=== PATIENT | male | born 1965 | race Caucasian/White ===

== ENCOUNTER → 2016-11-11 | Outpatient (CLI) | payer OTHER ==
[~2016-11-11] MED LIST: COLC0.6T37 PO; ENOX60SY4 SQ; ENOX80SY4 SQ; FENT1PAT74 TD; FENT1PAT77 TD; FERR324T18 PO; HYDR473S47 PO; MAGN400O4 PO; NAPR-763 PO; OMEP-110 PO; OMNIPAQUE 350 MG/ML, 100ML BOTTLE ONE; ONDA4TAB10 PO; ONDA8TAB9 PO; OXYC1TAB9 PO; OXYC5TAB3 PO; SENN-1 PO; SUCR1ORA11 PO
== END | disposition home or self-care (01) ==
LOC: CFH 11:20
PROVIDERS: ATTEND Specialist
DX: C15.5 Malignant neoplasm of lower third of esophagus (principal); N28.1 Cyst of kidney, acquired; K76.9 Liver disease, unspecified; Z90.49 Acquired absence of other specified parts of digestive tract
CPT/HCPCS: 71260; 74177; Q9967

== ENCOUNTER → 2017-01-29 | Outpatient (CLI) | payer OTHER | END | disposition home or self-care (01) | LOC: CFH 09:48 | PROVIDERS: ATTEND Specialist | DX: C15.5 Malignant neoplasm of lower third of esophagus (principal); R42 Dizziness and giddiness; K76.89 Other specified diseases of liver; N28.1 Cyst of kidney, acquired; K40.90 Unilateral inguinal hernia, without obstruction or gangrene, not specified as recurrent; Z90.49 Acquired absence of other specified parts of digestive tract | CPT/HCPCS: 71260; 74177; Q9967 ==

== ENCOUNTER → 2017-06-30 | Outpatient (CLI) | payer OTHER ==
[~2017-06-30] MED LIST changes: -MAGN400O4 PO; +MAGN400O7 PO
== END | disposition home or self-care (01) ==
LOC: CFH 09:08
PROVIDERS: ATTEND Radiology Radiation Oncology
DX: C15.5 Malignant neoplasm of lower third of esophagus (principal)
CPT/HCPCS: 71260; 74177; Q9967

== ENCOUNTER → 2017-07-03 | Outpatient (CLI) | payer OTHER ==
[~2017-07-03] MED LIST changes: -OMNIPAQUE 350 MG/ML, 100ML BOTTLE ONE
== END | disposition home or self-care (01) ==
LOC: ROC 08:12
PROVIDERS: ATTEND Radiology Radiation Oncology
DX: Z08 Encounter for follow-up examination after completed treatment for malignant neoplasm (principal); C16.0 Malignant neoplasm of cardia; C78.6 Secondary malignant neoplasm of retroperitoneum and peritoneum; Z92.3 Personal history of irradiation
CPT/HCPCS: 99212; G0463

== ENCOUNTER 2017-07-19 22:03 | Inpatient (IN) | payer OTHER ==
[~2017-07-19] VITALS: Ht 172.7 cm; Wt 76.8 kg
[2017-07-19] MEDS ORDERED: MORPHINE SULFATE 4 MG/ML, 1ML ONE ×2 (23:16→23:53)
[2017-07-19] MEDS ORDERED: ONDANSETRON 2MG/ML, 2ML ONE (23:16)
[2017-07-19] MEDS: MORPHINE SULFATE 4 MG/ML, 1ML IVPush PRN ×2 (23:27→23:55)
[2017-07-19] MEDS ORDERED: ONDANSETRON 2MG/ML, 2ML IVPush ONE (23:30)
[2017-07-19] MEDS ORDERED: SODIUM CHLORIDE 0.9% 1,000ML IVBOLUS ONE (23:30)
[2017-07-19 23:37] LABS: HEMATOCRIT 33.4 % (39.2-51.8); HEMOGLOBIN 10.9 g/dL (13.7-18.0)
[2017-07-19 23:38] LABS: DIFF TOTAL CELLS COUNTED 100 CELL DIFF
[2017-07-19 23:46] LABS: BLOOD UREA NITROGEN 20 mg/dL (7-18)
[2017-07-19 23:51] LABS: ASPARTATE AMINO TRANSFERASE 21 U/L (15-37)
[2017-07-19 23:53] LABS: IS PT STATUS REG ER OR PRE ER? YES
[2017-07-20] MEDS ORDERED: ONDANSETRON 2MG/ML, 2ML ONE ×2 (00:02→05:40)
[2017-07-20 00:11] LABS: VERIFY COUNTS? YES
[2017-07-20 00:13] LABS: ANISOCYTOSIS 1+; MICROCYTOSIS 1+; OVALOCYTES 1+; POLYCHROMASIA 1+
[2017-07-20 00:14] LABS: TARGET CELLS 1+
[2017-07-20] MEDS ORDERED: ONDANSETRON 2MG/ML, 2ML IVPush ONE (00:30)
[2017-07-20] MEDS ORDERED: OMNIPAQUE 350 MG/ML, 100ML BOTTLE ONE (00:31)
[2017-07-20] MEDS ORDERED: SODIUM CHLORIDE 0.9% 1,000 ML IV ONE (01:48)
[2017-07-20] MEDS ORDERED: MORPHINE SULFATE 4 MG/ML, 1ML IVPush PRN (02:00)
[2017-07-20] MEDS ORDERED: METOCLOPRAMIDE 5 MG/ML, 2ML ONE (02:33)
[2017-07-20] MEDS ORDERED: METOCLOPRAMIDE 5 MG/ML, 2ML IVPush ONE (03:00)
[2017-07-20] MEDS ORDERED: SODIUM CHLORIDE 0.9% 1,000 ML IV SCH (03:44)
[2017-07-20] MEDS ORDERED: ACETAMINOPHEN 325 MG TABLET PO PRN (04:00)
[2017-07-20] MEDS ORDERED: morphine SULFATE 10 MG/ML, 1ML IVPush PRN (04:00)
[2017-07-20] MEDS ORDERED: ONDANSETRON ODT 4 MG PO PRN (04:00)
[2017-07-20] MEDS ORDERED: PROMETHAZINE 25 MG/ML, 1ML IM PRN (04:00)
[2017-07-20] MEDS ORDERED: METRONIDAZOLE PMX 500MG/100ML 100 ML ONE (04:26)
[2017-07-20] MEDS ORDERED: LEVOFLOXACIN/PMX 750MG/150ML 150 ML ONE (04:26)
[2017-07-20] MEDS: METRONIDAZOLE PMX 500MG/100ML 100 ML IV SCH ×3 (04:33→20:21)
[2017-07-20 05:24] LABS: HEMATOCRIT 29.5 % (39.2-51.8); HEMOGLOBIN 9.5 g/dL (13.7-18.0); WHITE BLOOD COUNT 9.1 x10^3/uL (3.4-10)
[2017-07-20 05:25] LABS: BLOOD UREA NITROGEN 20 mg/dL (7-18)
[2017-07-20 05:28] LABS: ASPARTATE AMINO TRANSFERASE 14 U/L (15-37)
[2017-07-20] MEDS: LEVOFLOXACIN/PMX 750MG/150ML 150 ML IV SCH (05:38)
[2017-07-20] MEDS ORDERED: MORPHINE SULFATE 4 MG/ML, 1ML ONE (05:40)
[2017-07-20] MEDS: ONDANSETRON 2MG/ML, 2ML IVPush PRN ×3 (05:45→20:29)
[2017-07-20 06:11] LABS: DIFF TOTAL CELLS COUNTED 100 CELL DIFF
[2017-07-20 06:13] LABS: VERIFY COUNTS? YES
[2017-07-20 06:14] LABS: ANISOCYTOSIS 1+; MICROCYTOSIS 1+; OVALOCYTES 1+; POLYCHROMASIA 1+; TARGET CELLS 1+
[2017-07-20] MEDS ORDERED: PANTOPRAZOLE 40 MG IV ONE (07:27)
[2017-07-20] MEDS: PANTOPRAZOLE 40 MG IV IVPush SCH (07:37)
[2017-07-20 08:25] VITALS: BP 125/82
[2017-07-20 14:31] VITALS: BP 110/61
[2017-07-20 16:34] LABS: BLOOD UREA NITROGEN 20 mg/dL (7-18)
[2017-07-20] MEDS: D5%-0.45NACL+KCL 40MEQ 1,000 ML IV SCH (18:31)
[2017-07-20 19:00] VITALS: BP 123/76
[2017-07-21] MEDS: D5%-0.45NACL+KCL 40MEQ 1,000 ML IV SCH ×3 (01:46→17:02)
[2017-07-21] MEDS: ONDANSETRON 2MG/ML, 2ML IVPush PRN ×2 (01:50→06:17)
[2017-07-21 02:59] VITALS: BP 128/81
[2017-07-21] MEDS: LEVOFLOXACIN/PMX 750MG/150ML 150 ML IV SCH (03:32)
[2017-07-21 04:41] LABS: HEMATOCRIT 25.4 % (39.2-51.8); HEMOGLOBIN 8.2 g/dL (13.7-18.0); WHITE BLOOD COUNT 8.2 x10^3/uL (3.4-10)
[2017-07-21] MEDS: METRONIDAZOLE PMX 500MG/100ML 100 ML IV SCH ×2 (04:42→11:42)
[2017-07-21] MEDS: PANTOPRAZOLE 40 MG IV IVPush SCH (06:16)
[2017-07-21 08:00] VITALS: BP 106/61
[2017-07-21 11:40] VITALS: BP 107/66
[2017-07-21 14:52] VITALS: BP 113/68
[2017-07-21 19:05] VITALS: BP 110/62
[2017-07-22 01:49] VITALS: BP 116/68
[2017-07-22] MEDS: D5%-0.45NACL+KCL 40MEQ 1,000 ML IV SCH ×4 (01:49→22:31)
[2017-07-22 04:25] LABS: HEMATOCRIT 23.2 % (39.2-51.8); HEMOGLOBIN 7.4 g/dL (13.7-18.0); WHITE BLOOD COUNT 5.5 x10^3/uL (3.4-10)
[2017-07-22 04:26] LABS: BLOOD UREA NITROGEN 13 mg/dL (7-18)
[2017-07-22 06:45] VITALS: BP 115/73
[2017-07-22] MEDS: PANTOPRAZOLE 40 MG IV IVPush SCH (07:57)
[2017-07-22 13:10] VITALS: BP 104/67
[2017-07-22 19:18] VITALS: BP 96/62
[2017-07-23 01:18] VITALS: BP 111/68
[2017-07-23 05:04] LABS: BLOOD UREA NITROGEN 8 mg/dL (7-18)
[2017-07-23 05:05] LABS: HEMATOCRIT 24.6 % (39.2-51.8); HEMOGLOBIN 7.8 g/dL (13.7-18.0); WHITE BLOOD COUNT 3.5 x10^3/uL (3.4-10)
[2017-07-23] MEDS: D5%-0.45NACL+KCL 40MEQ 1,000 ML IV SCH ×2 (05:11→10:20)
[2017-07-23 07:02] VITALS: BP 112/75
[2017-07-23] MEDS: PANTOPRAZOLE 40 MG IV IVPush SCH (08:43)
[2017-07-23 13:10] VITALS: BP 110/78
== END 2017-07-23 16:20 | disposition home or self-care (01) | DRG 389 ==
LOC: ED 07-20 00:06 → EDIP 07-20 01:49 → 4NOR 07-20 08:26 → 3NW 07-20 17:00 → DCLOUNGE 07-23 16:07
PROVIDERS: ADMIT Surgery; ATTEND Surgery
PROC: 0D9670Z Drainage of Stomach with Drainage Device, Via Natural or Artificial Opening (ICD-10-PCS; principal; 2017-07-20)
DX: K56.52 Intestinal adhesions [bands] with complete obstruction (principal); C16.9 Malignant neoplasm of stomach, unspecified; D64.9 Anemia, unspecified; D72.825 Bandemia; K21.9 Gastro-esophageal reflux disease without esophagitis; Z85.01 Personal history of malignant neoplasm of esophagus; Z85.028 Personal history of other malignant neoplasm of stomach; Z87.891 Personal history of nicotine dependence; Z92.21 Personal history of antineoplastic chemotherapy; Z92.3 Personal history of irradiation; Z90.49 Acquired absence of other specified parts of digestive tract
CPT/HCPCS: 36415; 74000; 74020; 74177; 80048; 80053; 81003; 83605; 83690; 83735; 84100; 84484; 85025; 85651; 86141; 96361; 96374; 96375; 96376; J1956; J2405; Q9967; C9113; J2270; J2765; J3480; J7030

== ENCOUNTER → 2017-07-30 | Outpatient (CLI) | payer OTHER | END | disposition home or self-care (01) | LOC: PETCFH 08:44 | PROVIDERS: ATTEND Specialist | DX: C15.5 Malignant neoplasm of lower third of esophagus (principal) | CPT/HCPCS: 78815; A9552 ==

== ENCOUNTER → 2017-08-20 | Outpatient (CLI) | payer OTHER | END | disposition home or self-care (01) | LOC: CVU 10:45 | PROVIDERS: ATTEND Surgery | DX: Z45.2 Encounter for adjustment and management of vascular access device (principal); C15.9 Malignant neoplasm of esophagus, unspecified; Z86.718 Personal history of other venous thrombosis and embolism; Z92.3 Personal history of irradiation; Z92.21 Personal history of antineoplastic chemotherapy | CPT/HCPCS: 93970 ==

== ENCOUNTER 2017-08-21 12:00 | Day surgery (SDC) | payer OTHER ==
[~2017-08-21] VITALS: Ht 172.7 cm; Wt 74.0 kg
[~2017-08-21 12:00] MED LIST changes: +BUPIVACAINE/PF 0.5% ONE; +EPINEPHRINE 1 MG/ML, 1ML ONE; +HEPARIN 1,000 UNITS/ML, 10ML ONE
[2017-08-21] MEDS ORDERED: LACTATED RINGERS 1,000 ML IV SCH (12:35)
[2017-08-21 12:37] VITALS: BP 122/74
[2017-08-21] MEDS ORDERED: CEFAZOLIN 1,000 MG ONE (12:53)
[2017-08-21] MEDS ORDERED: ONDANSETRON 2MG/ML, 2ML ONE (12:53)
[2017-08-21] MEDS ORDERED: MIDAZOLAM 1 MG/ML, 2ML ONE (12:53)
[2017-08-21] MEDS ORDERED: DEXAMETHASONE 4 MG/ML, 1ML ONE (12:53)
[2017-08-21] MEDS ORDERED: FENTANYL PF 250 MCG/5ML ONE (12:53)
[2017-08-21] MEDS ORDERED: PROPOFOL 10 MG/ML, 20ML ONE (12:53)
[2017-08-21 12:58] VITALS: BP 122/74
[2017-08-21] MEDS ORDERED: MIDAZOLAM 1 MG/ML, 2ML IV PRN (13:00)
[2017-08-21] MEDS ORDERED: OXYcodone 5 MG/5 ML ORAL.SOL UDC PO PRN (13:00)
[2017-08-21] MEDS ORDERED: ACETAMINOPHEN 325 MG TABLET PO PRN (13:00)
[2017-08-21] MEDS ORDERED: LABETALOL 5MG/ML, 20ML IV PRN (13:00)
[2017-08-21] MEDS ORDERED: DIAZEPAM 5 MG/ML, 2ML IVPush PRN (13:00)
[2017-08-21] MEDS ORDERED: ALBUTEROL/IPRATROPIUM 2.5MG/0.5MG, 3 ML NPPB PRN (13:00)
[2017-08-21] MEDS ORDERED: PLEASE ENTER HEIGHT AND WEIGHT MC SCH (13:00)
[2017-08-21] MEDS ORDERED: FENTANYL PF 100 MCG/2ML IV PRN (13:00)
[2017-08-21] MEDS ORDERED: PROMETHAZINE 25 MG/ML, 1ML IV PRN (13:00)
[2017-08-21] MEDS ORDERED: METOCLOPRAMIDE 5 MG/ML, 2ML IV PRN (13:00)
[2017-08-21] MEDS ORDERED: ONDANSETRON 2MG/ML, 2ML IVPush PRN (13:00)
[2017-08-21] MEDS ORDERED: HYDROmorphone 1 MG/ML, 1ML IV PRN (13:00)
[2017-08-21] MEDS ORDERED: LORazepam 2 MG/ML, 1ML IVPush PRN (13:00)
[2017-08-21] MEDS ORDERED: MEPERIDINE/PF 25MG/0.5ML IVPush PRN (13:00)
[2017-08-21] MEDS ORDERED: hydrALAzine 20 MG/ML, 1ML IV PRN (13:00)
[2017-08-21] MEDS ORDERED: KETOROLAC 30 MG/1 ML ONE (13:56)
== END 2017-08-21 15:55 ==
LOC: OUT 12:00
PROVIDERS: ATTEND Surgery
DX: Z45.2 Encounter for adjustment and management of vascular access device (principal); C15.9 Malignant neoplasm of esophagus, unspecified; K21.9 Gastro-esophageal reflux disease without esophagitis; Z72.89 Other problems related to lifestyle
CPT/HCPCS: 36561; 71045; 77001; C1788; J0171; J0690; J1100; J1644; J1885; J2250; J2405; J2704; J3010; J3490

== ENCOUNTER 2017-09-02 09:54 | Inpatient (IN) | payer OTHER ==
[~2017-09-02] VITALS: Ht 172.7 cm; Wt 76.0 kg
[~2017-09-02 09:54] MED LIST changes: -BUPIVACAINE/PF 0.5% ONE; -EPINEPHRINE 1 MG/ML, 1ML ONE; -HEPARIN 1,000 UNITS/ML, 10ML ONE
[2017-09-02] MEDS ORDERED: ONDANSETRON 2MG/ML, 2ML ONE (10:47)
[2017-09-02] MEDS ORDERED: MORPHINE SULFATE 4 MG/ML, 1ML ONE (10:47)
[2017-09-02] MEDS ORDERED: MORPHINE SULFATE 4 MG/ML, 1ML IVPush PRN (11:00)
[2017-09-02] MEDS ORDERED: ONDANSETRON 2MG/ML, 2ML IVPush ONE (11:00)
[2017-09-02 11:37] LABS: MEAN CORPUSCULAR HEMOGLOBIN 24.5 pg (27.5-34.5); MEAN CORPUSCULAR VOLUME 76.7 fL (81-97); MEAN PLATELET VOLUME 6.9 fL (7.4-10.4); PLATELET COUNT 428 x10^3/uL (130-400); RED BLOOD COUNT 4.19 x10^6/uL (4.38-5.82); RED CELL DISTRIBUTION WIDTH 20.2 % (9.4-14.8)
[2017-09-02 11:49] LABS: ANION GAP 9 mmol/L (5-15); CALCIUM 9.5 mg/dL (8.5-10.1); CHLORIDE 106 mmol/L (98-107)
[2017-09-02 11:53] LABS: ALANINE AMINOTRANSFERASE 18 U/L (12-78); ALKALINE PHOSPHATASE 87 U/L (45-117); BILIRUBIN,TOTAL 0.6 mg/dL (0.2-1.0); CREATININE 1.24 mg/dL (0.7-1.3); TOTAL PROTEIN 7.8 g/dL (6.4-8.2)
[2017-09-02] MEDS ORDERED: SODIUM CHLORIDE FLUSH 10ML SYR IVF ONE (12:00)
[2017-09-02] MEDS ORDERED: SODIUM CHLORIDE 0.9% 1,000ML IVBOLUS ONE ×2 (12:00→15:00)
[2017-09-02 12:34] LABS: BASOPHILS % (AUTO) 0 % (0-1); EOSINOPHILS # (AUTO) 0.01 x10^3/uL (0-0.4); EOSINOPHILS % (AUTO) 0 % (1-7); LYMPHOCYTES # (AUTO) 0.25 x10^3/uL (1-3.4); LYMPHOCYTES % (AUTO) 1 % (22-44); MD SCAN; MONOCYTES # (AUTO) 0.59 x10^3/uL (0.2-0.8); MONOCYTES % (AUTO) 3 % (2-9); NEUTROPHILS # (AUTO) 16.41 x10^3/uL (1.8-6.8); NEUTROPHILS % (AUTO) 95 % (42-75)
[2017-09-02] MEDS ORDERED: CEFTRIAXONE PMX 1GM/50ML 50 ML IV ONE (13:00)
[2017-09-02] MEDS ORDERED: CEFTRIAXONE PMX 1GM/50ML 50 ML ONE (13:27)
[2017-09-02] MEDS ORDERED: POLYETHYLENE GLYCOL 17 GM PACKET PO PRN (14:30)
[2017-09-02] MEDS ORDERED: ACETAMINOPHEN 325 MG TABLET PO PRN (14:30)
[2017-09-02] MEDS ORDERED: ONDANSETRON 2MG/ML, 2ML IVPush PRN (14:30)
[2017-09-02] MEDS ORDERED: METOCLOPRAMIDE 5 MG/ML, 2ML IVPush PRN (14:30)
[2017-09-02] MEDS ORDERED: LABETALOL 5MG/ML, 20ML IVPush PRN (14:30)
[2017-09-02] MEDS ORDERED: hydrALAzine 20 MG/ML, 1ML IVPush PRN (14:30)
[2017-09-02] MEDS: D5%-0.45% NACL 1,000 ML IV SCH ×2 (14:54→17:53)
[2017-09-02] MEDS: ENOXAPARIN 40 MG/0.4 ML SQ SCH (15:01)
[2017-09-02 15:06] VITALS: BP 114/75
[2017-09-02] MEDS ORDERED: OMNIPAQUE 350 MG/ML, 100ML BOTTLE ONE (18:37)
[2017-09-02 20:08] VITALS: BP 109/63
[2017-09-02 21:36] LABS: MICROSCOPIC NOT IND
[2017-09-02 21:38] LABS: CULTURE INDICATED? NO
[2017-09-03 01:57] VITALS: BP 109/64
[2017-09-03] MEDS: D5%-0.45% NACL 1,000 ML IV SCH ×3 (02:02→18:00)
[2017-09-03 06:01] LABS: MEAN CORPUSCULAR HEMOGLOBIN 24.2 pg (27.5-34.5); MEAN CORPUSCULAR HGB CONC 31.6 g/dL (33.2-36.2); MEAN CORPUSCULAR VOLUME 76.5 fL (81-97); MEAN PLATELET VOLUME 6.9 fL (7.4-10.4); PLATELET COUNT 286 x10^3/uL (130-400); RED BLOOD COUNT 2.89 x10^6/uL (4.38-5.82); RED CELL DISTRIBUTION WIDTH 20.2 % (9.4-14.8)
[2017-09-03 06:07] LABS: ANION GAP 4 mmol/L (5-15); CALCIUM 7.8 mg/dL (8.5-10.1); CHLORIDE 114 mmol/L (98-107); CREATININE 0.76 mg/dL (0.7-1.3)
[2017-09-03 06:28] LABS: BASOPHILS # (AUTO) 0.01 x10^3/uL (0-0.1); BASOPHILS % (AUTO) 0 % (0-1); EOSINOPHILS # (AUTO) 0.15 x10^3/uL (0-0.4); EOSINOPHILS % (AUTO) 3 % (1-7); LYMPHOCYTES # (AUTO) 0.43 x10^3/uL (1-3.4); LYMPHOCYTES % (AUTO) 9 % (22-44); MD SCAN; MONOCYTES # (AUTO) 0.44 x10^3/uL (0.2-0.8); MONOCYTES % (AUTO) 9 % (2-9); NEUTROPHILS # (AUTO) 4.03 x10^3/uL (1.8-6.8); NEUTROPHILS % (AUTO) 80 % (42-75)
[2017-09-03 08:12] VITALS: BP 109/76
[2017-09-03 08:22] LABS: ABSOLUTE RETICS # 0.082 x10^6/uL (0.5-1.5); RETICULOCYTE COUNT % 2.86 % (0.5-1.5)
[2017-09-03 08:25] LABS: RED BLOOD COUNT 2.89 x10^6/uL (4.38-5.82)
[2017-09-03] MEDS ORDERED: PANTOPRAZOLE 40 MG IV IVPush SCH (09:00)
[2017-09-03] MEDS: SENNA/DOCUSATE TABLET PO SCH (09:08)
[2017-09-03 09:26] LABS: OCCULT BLOOD POSITIVE (NEGATIVE)
[2017-09-03] MEDS: ENOXAPARIN 40 MG/0.4 ML SQ SCH (14:30)
[2017-09-03 15:02] VITALS: BP 119/80
[2017-09-03 20:17] VITALS: BP 115/70
[2017-09-03] MEDS: PANTOPRAZOLE 40 MG IV IVPush SCH (21:08)
[2017-09-04] MEDS: D5%-0.45% NACL 1,000 ML IV SCH ×3 (02:00→17:42)
[2017-09-04 02:04] VITALS: BP 103/68
[2017-09-04 05:53] LABS: ANION GAP 6 mmol/L (5-15); CALCIUM 7.9 mg/dL (8.5-10.1); CHLORIDE 112 mmol/L (98-107); CREATININE 0.75 mg/dL (0.7-1.3)
[2017-09-04 06:06] LABS: MEAN CORPUSCULAR HEMOGLOBIN 24.3 pg (27.5-34.5); MEAN CORPUSCULAR HGB CONC 31.7 g/dL (33.2-36.2); MEAN CORPUSCULAR VOLUME 76.6 fL (81-97); MEAN PLATELET VOLUME 6.9 fL (7.4-10.4); PLATELET COUNT 281 x10^3/uL (130-400); RED BLOOD COUNT 2.89 x10^6/uL (4.38-5.82); RED CELL DISTRIBUTION WIDTH 20.1 % (9.4-14.8)
[2017-09-04 06:44] LABS: BASOPHILS # (AUTO) 0.01 x10^3/uL (0-0.1); BASOPHILS % (AUTO) 0 % (0-1); EOSINOPHILS # (AUTO) 0.21 x10^3/uL (0-0.4); EOSINOPHILS % (AUTO) 6 % (1-7); LYMPHOCYTES # (AUTO) 0.35 x10^3/uL (1-3.4); LYMPHOCYTES % (AUTO) 9 % (22-44); MD SCAN; MONOCYTES # (AUTO) 0.33 x10^3/uL (0.2-0.8); MONOCYTES % (AUTO) 9 % (2-9); NEUTROPHILS % (AUTO) 76 % (42-75)
[2017-09-04] MEDS: PANTOPRAZOLE 40 MG IV IVPush SCH ×2 (07:20→20:25)
[2017-09-04] MEDS: SENNA/DOCUSATE TABLET PO SCH (07:20)
[2017-09-04 07:50] VITALS: BP 113/70
[2017-09-04] MEDS: ENOXAPARIN 40 MG/0.4 ML SQ SCH (13:32)
[2017-09-04 13:39] VITALS: BP 119/74
[2017-09-04] MEDS ORDERED: FENTANYL PF 100 MCG/2ML ONE (14:29)
[2017-09-04] MEDS ORDERED: MIDAZOLAM 1 MG/ML, 2ML ONE (14:30)
[2017-09-04] MEDS ORDERED: GOLYTELY 4,000ML ORAL.SOL PO ONE (15:00)
[2017-09-04 15:58] VITALS: BP 117/78
[2017-09-04 19:17] VITALS: BP 124/79
[2017-09-05] MEDS: D5%-0.45% NACL 1,000 ML IV SCH ×2 (02:14→14:04)
[2017-09-05 02:53] VITALS: BP 112/69
[2017-09-05 06:20] LABS: MEAN CORPUSCULAR HEMOGLOBIN 24.2 pg (27.5-34.5); MEAN CORPUSCULAR HGB CONC 31.9 g/dL (33.2-36.2); MEAN CORPUSCULAR VOLUME 75.9 fL (81-97); MEAN PLATELET VOLUME 6.7 fL (7.4-10.4); PLATELET COUNT 280 x10^3/uL (130-400); RED BLOOD COUNT 2.76 x10^6/uL (4.38-5.82); RED CELL DISTRIBUTION WIDTH 20.3 % (9.4-14.8)
[2017-09-05 06:45] LABS: BASOPHILS # (AUTO) 0.01 x10^3/uL (0-0.1); BASOPHILS % (AUTO) 0 % (0-1); EOSINOPHILS # (AUTO) 0.16 x10^3/uL (0-0.4); EOSINOPHILS % (AUTO) 5 % (1-7); LYMPHOCYTES # (AUTO) 0.35 x10^3/uL (1-3.4); LYMPHOCYTES % (AUTO) 10 % (22-44); MD SCAN; MONOCYTES # (AUTO) 0.39 x10^3/uL (0.2-0.8); MONOCYTES % (AUTO) 11 % (2-9); NEUTROPHILS % (AUTO) 74 % (42-75)
[2017-09-05 08:12] VITALS: BP 124/78
[2017-09-05 08:30] VITALS: BP 128/90
[2017-09-05 08:38] VITALS: BP 115/75
[2017-09-05] MEDS: SENNA/DOCUSATE TABLET PO SCH (09:00)
[2017-09-05] MEDS ORDERED: MIDAZOLAM 1 MG/ML, 2ML ONE (09:02)
[2017-09-05] MEDS ORDERED: PROPOFOL 10 MG/ML, 20ML ONE (09:25)
[2017-09-05] MEDS ORDERED: OXYcodone 5 MG/5 ML ORAL.SOL UDC PO PRN (10:00)
[2017-09-05] MEDS ORDERED: ACETAMINOPHEN 325 MG TABLET PO PRN (10:00)
[2017-09-05] MEDS ORDERED: HYDROcodone/APAP 7.5-325MG/15ML UDC PO PRN (10:00)
[2017-09-05] MEDS ORDERED: ONDANSETRON 2MG/ML, 2ML IVPush PRN (10:00)
[2017-09-05] MEDS ORDERED: FENTANYL PF 100 MCG/2ML IV PRN (10:00)
[2017-09-05] MEDS: PANTOPRAZOLE 40 MG IV IVPush SCH ×2 (10:43→21:45)
[2017-09-05] MEDS ORDERED: IRON DEXTRAN IV PER PHARMACY IV PRN (11:00)
[2017-09-05] MEDS ORDERED: IRON DEXTRAN COMPLEX 25 MG in SODIUM CHLORIDE 0.9% 50 ML IV ONE (11:30)
[2017-09-05] MEDS ORDERED: IRON DEXTRAN COMPLEX 1,800 MG in SODIUM CHLORIDE 0.9% 250 ML IV ONE (12:30)
[2017-09-05] MEDS ORDERED: EPINEPHRINE 1 MG/ML, 1ML SQ ONE (14:00)
[2017-09-05 14:16] VITALS: BP 103/67
[2017-09-05] MEDS: ENOXAPARIN 40 MG/0.4 ML SQ SCH (15:14)
[2017-09-05 19:33] VITALS: BP 114/70
== END 2017-09-05 21:40 | disposition home or self-care (01) | DRG 375 ==
LOC: ED 10:46 → EDIP 12:49 → 3NW 14:04
PROVIDERS: ADMIT Hospitalist; ATTEND Hospitalist
PROC: 0DB58ZX Excision of Esophagus, Via Natural or Artificial Opening Endoscopic, Diagnostic (ICD-10-PCS; 2017-09-04)
PROC: 0D758ZZ Dilation of Esophagus, Via Natural or Artificial Opening Endoscopic (ICD-10-PCS; principal; 2017-09-04 16:00)
PROC: 30233N1 Transfusion of Nonautologous Red Blood Cells into Peripheral Vein, Percutaneous Approach (ICD-10-PCS; 2017-09-05)
PROC: 0DJD8ZZ Inspection of Lower Intestinal Tract, Via Natural or Artificial Opening Endoscopic (ICD-10-PCS; 2017-09-05)
DX: C15.9 Malignant neoplasm of esophagus, unspecified (principal); C78.6 Secondary malignant neoplasm of retroperitoneum and peritoneum; K56.600 Partial intestinal obstruction, unspecified as to cause; K22.2 Esophageal obstruction; K92.2 Gastrointestinal hemorrhage, unspecified; E86.0 Dehydration; D50.9 Iron deficiency anemia, unspecified; D72.829 Elevated white blood cell count, unspecified; K21.9 Gastro-esophageal reflux disease without esophagitis; Z80.1 Family history of malignant neoplasm of trachea, bronchus and lung; Z85.028 Personal history of other malignant neoplasm of stomach; Z87.891 Personal history of nicotine dependence; Z92.21 Personal history of antineoplastic chemotherapy; Z92.3 Personal history of irradiation
CPT/HCPCS: 36415; 74021; 74177; 80048; 80053; 81003; 82272; 82728; 83540; 83550; 83605; 83690; 83735; 85014; 85018; 85025; 85045; 86850; 86900; 86923; 87040; 88305; 93005; 96374; 96375; 99152; 99153; J0696; J1650; J1750; J2250; J2405; J2704; J3010; Q9967; C1725; C9113; J7030; J7050; P9016

== ENCOUNTER 2018-01-14 13:27 | Inpatient (IN) | payer OTHER ==
[~2018-01-14] VITALS: Ht 172.7 cm; Wt 63.9 kg
[~2018-01-14 13:27] MED LIST changes: +HYDR-3237 PO; +OXYC-432 PO; -OXYC1TAB9 PO
[2018-01-14] MEDS ORDERED: ONDANSETRON 2MG/ML, 2ML IVPush ONE (14:00)
[2018-01-14] MEDS ORDERED: SODIUM CHLORIDE 0.9% 1,000ML IVBOLUS ONE (14:00)
[2018-01-14] MEDS ORDERED: SODIUM CHLORIDE FLUSH 10ML SYR IVF ONE (14:00)
[2018-01-14] MEDS ORDERED: MORPHINE SULFATE 4 MG/ML, 1ML ONE ×2 (14:11→15:24)
[2018-01-14] MEDS ORDERED: ONDANSETRON 2MG/ML, 2ML ONE (14:11)
[2018-01-14] MEDS: MORPHINE SULFATE 4 MG/ML, 1ML IVPush PRN ×2 (14:18→15:27)
[2018-01-14 14:22] LABS: MEAN CORPUSCULAR HGB CONC 32.2 g/dL (33.2-36.2); MEAN CORPUSCULAR VOLUME 77.6 fL (81-97); MEAN PLATELET VOLUME 6.9 fL (7.4-10.4); PLATELET COUNT 453 x10^3/uL (130-400); RED BLOOD COUNT 5.02 x10^6/uL (4.38-5.82); RED CELL DISTRIBUTION WIDTH 23.5 % (9.4-14.8)
[2018-01-14] MEDS ORDERED: MEGE40TA PO (14:26)
[2018-01-14] MEDS ORDERED: KEYTRUDA (14:26)
[2018-01-14 14:32] LABS: ALANINE AMINOTRANSFERASE 31 U/L (12-78); ALBUMIN 3.8 g/dL (3.4-5.0); ANION GAP 11 mmol/L (5-15); CALCIUM 9.6 mg/dL (8.5-10.1); CHLORIDE 103 mmol/L (98-107); CREATININE 1.19 mg/dL (0.7-1.3)
[2018-01-14 14:34] LABS: ALKALINE PHOSPHATASE 119 U/L (45-117); BILIRUBIN,TOTAL 0.5 mg/dL (0.2-1.0); TOTAL PROTEIN 7.7 g/dL (6.4-8.2)
[2018-01-14 14:46] LABS: INTERNATIONAL NORMALIZED RATIO 1.04 (0.93-1.1); PROTHROMBIN TIME 10.7 Seconds (9.6-11.5)
[2018-01-14 14:48] LABS: BASOPHILS # (AUTO) 0.01 x10^3/uL (0-0.1); BASOPHILS % (AUTO) 0 % (0-1); EOSINOPHILS % (AUTO) 0 % (1-7); LYMPHOCYTES # (AUTO) 0.68 x10^3/uL (1-3.4); LYMPHOCYTES % (AUTO) 10 % (22-44); MD MORPH REVIEW ONLY; MONOCYTES # (AUTO) 0.41 x10^3/uL (0.2-0.8); MONOCYTES % (AUTO) 6 % (2-9); NEUTROPHILS # (AUTO) 5.64 x10^3/uL (1.8-6.8); NEUTROPHILS % (AUTO) 84 % (42-75)
[2018-01-14 14:49] LABS: <PLATELET ESTIMATE> INCREASED; <PLT MORPHOLOGY> NORMAL PLT MORPH; ANISOCYTOSIS 1+; HYPOCHROMIA 1+; MICROCYTOSIS 1+; OVALOCYTES 1+
[2018-01-14] MEDS ORDERED: PROMETHAZINE 25 MG/ML, 1ML ONE (15:23)
[2018-01-14] MEDS ORDERED: PROMETHAZINE 25 MG/ML, 1ML IM ONE (15:30)
[2018-01-14] MEDS ORDERED: OMNIPAQUE 350 MG/ML, 100ML BOTTLE ONE (15:55)
[2018-01-14] MEDS ORDERED: PROMETHAZINE 25 MG/ML, 1ML IM PRN (18:00)
[2018-01-14] MEDS ORDERED: ACETAMINOPHEN 325 MG TABLET PO PRN (18:00)
[2018-01-14] MEDS ORDERED: LORazepam INTENSOL 2 MG/ML BC PRN (18:00)
[2018-01-14] MEDS ORDERED: METOCLOPRAMIDE 5 MG/ML, 2ML IVPush PRN (18:00)
[2018-01-14] MEDS ORDERED: ONDANSETRON 2MG/ML, 2ML IVPush PRN (18:00)
[2018-01-14] MEDS ORDERED: HYDROcodone/APAP 5/325 TABLET PO PRN (18:00)
[2018-01-14] MEDS ORDERED: LORazepam 1MG TABLET PO PRN (18:28)
[2018-01-14] MEDS: MEGESTROL 40MG TABLET PO SCH (20:11)
[2018-01-14] MEDS: OMEPRAZOLE 20 MG CAPSULE.DR PO SCH (20:11)
[2018-01-14] MEDS: SODIUM CHLORIDE 0.9% 1,000 ML IV SCH (20:32)
[2018-01-14 21:00] VITALS: BP 113/78
[2018-01-15 04:39] VITALS: BP 106/72
[2018-01-15 06:35] VITALS: BP 102/69
[2018-01-15] MEDS: MEGESTROL 40MG TABLET PO SCH ×2 (09:00→20:49)
[2018-01-15] MEDS: SODIUM CHLORIDE 0.9% 1,000 ML IV SCH ×2 (10:02→22:21)
[2018-01-15 12:35] VITALS: BP 110/73
[2018-01-15 19:30] VITALS: BP 110/74
[2018-01-15] MEDS: OMEPRAZOLE 20 MG CAPSULE.DR PO SCH (20:49)
[2018-01-15] MEDS: morphine SULFATE 10 MG/ML, 1ML IVPush PRN (21:07)
[2018-01-16] MEDS: morphine SULFATE 10 MG/ML, 1ML IVPush PRN ×2 (02:11→09:03)
[2018-01-16 02:17] VITALS: BP 116/76
[2018-01-16 09:06] VITALS: BP 120/73
[2018-01-16] MEDS ORDERED: LORA-446 PO (09:35)
[2018-01-16] MEDS ORDERED: ONDA4TAB10 PO (09:35)
[2018-01-16] MEDS ORDERED: ACET325T14 PO (09:35)
== END 2018-01-16 11:11 | disposition hospice, home (50) | DRG 375 ==
LOC: ED 15:05 → EDIP 17:12 → 3NW 19:48
PROVIDERS: ADMIT Internal Medicine; ATTEND Internal Medicine
DX: C15.9 Malignant neoplasm of esophagus, unspecified (principal); I82.890 Acute embolism and thrombosis of other specified veins; K56.609 Unspecified intestinal obstruction, unspecified as to partial versus complete obstruction; C78.6 Secondary malignant neoplasm of retroperitoneum and peritoneum; Z66 Do not resuscitate; K21.9 Gastro-esophageal reflux disease without esophagitis; Z51.5 Encounter for palliative care; Z80.1 Family history of malignant neoplasm of trachea, bronchus and lung; Z85.01 Personal history of malignant neoplasm of esophagus; Z90.49 Acquired absence of other specified parts of digestive tract
CPT/HCPCS: 36415; 74021; 74177; 80053; 83690; 85025; 85610; 85730; 96361; 96372; 96374; 96375; 96376; J2405; J2550; Q9967; J2270; J7030